=== PATIENT | male | born 1965 | race Caucasian/White ===

== ENCOUNTER → 2020-07-02 | Outpatient (CLI) | payer OTHER | LOC: KOH-I 15:15 | DX: M54.2 Cervicalgia (principal); M54.6 Pain in thoracic spine; M54.5 Low back pain; M47.812 Spondylosis without myelopathy or radiculopathy, cervical region; M47.814 Spondylosis without myelopathy or radiculopathy, thoracic region; M47.816 Spondylosis without myelopathy or radiculopathy, lumbar region | CPT/HCPCS: 72050; 72070; 72110 ==

== ENCOUNTER 2021-12-02 15:51 | Inpatient (IN) | payer OTHER ==
[~2021-12-02] VITALS: Ht 182.9 cm; Wt 128.0 kg
[2021-12-02 17:25] LABS: HEMOGLOBIN 15.8 gm/dl (14.0-17.5); RED BLOOD COUNT 5.13 M/UL (4.20-5.50); WHITE BLOOD COUNT 6.8 K/UL (4.5-11.0)
[2021-12-02 18:20] LABS: BUN/CREATININE RATIO 18 (0-10)
[2021-12-02 22:58] LABS: BUN/CREATININE RATIO 16 (0-10)
[2021-12-03 04:18] LABS: BUN/CREATININE RATIO 16 (0-10)
[2021-12-03 07:23] LABS: HEMOGLOBIN 13.9 gm/dl (14.0-17.5); RED BLOOD COUNT 4.77 M/UL (4.20-5.50)
[2021-12-03 08:16] LABS: BUN/CREATININE RATIO 18 (0-10)
[2021-12-03 09:15] LABS: WHITE BLOOD COUNT 3.7 K/UL (4.5-11.0)
[2021-12-03] MEDS ORDERED: OMEPRAZOLE40 MG PO (10:43)
[2021-12-03] MEDS ORDERED: VITAMIN D325 MC6 PO (10:44)
[2021-12-03] MEDS ORDERED: FUROSEMIDE40 MG PO (10:45)
[2021-12-03] MEDS ORDERED: CRESTOR10 MG PO (10:46)
[2021-12-03] MEDS ORDERED: POTASSIUM CHLO20 ME1 PO (10:47)
[2021-12-03 12:13] LABS: BUN/CREATININE RATIO 16 (0-10)
[2021-12-03 12:20] LABS: CANDIDA ALBICANS Not Detected (Negative); CANDIDA KRUSEI Not Detected (Negative); CANDIDA TROPICALIS Not Detected (Negative); ESCHERICHIA COLI Not Detected (Negative); HAEMOPHILUS INFLUENZAE Not Detected (Negative); KLEBSIELLA OXYTOCA Not Detected (Negative); KLEBSIELLA PNEUMONIAE Not Detected (Negative); KPC-CARBAPENEM-RESISTANCE GENE Not Detected (Negative); PROTEUS Not Detected (Negative); PSEUDOMONAS AERUGINOSA Not Detected (Negative); SERRATIA MARCESANS Not Detected (Negative); STAPHYLOCOCCUS AUREUS Not Detected (Negative); STREP AGALACTIAE (GROUP B) Not Detected (Negative); STREP PYOGENES (GROUP A) Not Detected (Negative); STREPTOCOCCUS Not Detected (Negative); vanA/B (VANCOMYCIN RESIST GENE Not Detected (Negative)
[2021-12-03 13:31] LABS: STAPHYLOCOCCUS DETECTED (Negative)
[2021-12-04 05:14] LABS: HEMOGLOBIN 12.4 gm/dl (14.0-17.5)
[2021-12-04 05:24] LABS: RED BLOOD COUNT 4.24 M/UL (4.20-5.50); WHITE BLOOD COUNT 6.7 K/UL (4.5-11.0)
[2021-12-04 05:28] LABS: BUN/CREATININE RATIO 24 (0-10)
[2021-12-04 12:16] LABS: BUN/CREATININE RATIO 22 (0-10)
[2021-12-04] MEDS ORDERED: BUPRENORPHIN-N1 EACH SL (22:47)
[2021-12-04] MEDS ORDERED: LEVOTHYROXINE25 MCG PO (22:48)
[2021-12-04] MEDS ORDERED: FOLIC ACID 1 MG1 MG PO (22:48)
[2021-12-04] MEDS ORDERED: GLUCOPHAGE 500500 MG PO (22:49)
[2021-12-05 06:39] LABS: HEMOGLOBIN 13.6 gm/dl (14.0-17.5); RED BLOOD COUNT 4.49 M/UL (4.20-5.50)
[2021-12-05 06:48] LABS: WHITE BLOOD COUNT 10.3 K/UL (4.5-11.0)
[2021-12-05 07:03] LABS: BUN/CREATININE RATIO 23 (0-10)
[2021-12-06 06:27] LABS: HEMOGLOBIN 15.4 gm/dl (14.0-17.5); WHITE BLOOD COUNT 9.7 K/UL (4.5-11.0)
[2021-12-06 06:30] LABS: RED BLOOD COUNT 5.05 M/UL (4.20-5.50)
[2021-12-06 06:45] LABS: BUN/CREATININE RATIO 26 (0-10)
[2021-12-06 19:43] LABS: BUN/CREATININE RATIO 23 (0-10)
[2021-12-07 06:21] LABS: HEMOGLOBIN 14.8 gm/dl (14.0-17.5); RED BLOOD COUNT 4.9 M/UL (4.20-5.50); WHITE BLOOD COUNT 10.8 K/UL (4.5-11.0)
[2021-12-07 06:42] LABS: BUN/CREATININE RATIO 20 (0-10)
[2021-12-08 06:19] LABS: WHITE BLOOD COUNT 13.4 K/UL (4.5-11.0)
[2021-12-08 06:20] LABS: HEMOGLOBIN 16.9 gm/dl (14.0-17.5); RED BLOOD COUNT 5.53 M/UL (4.20-5.50)
[2021-12-08 06:58] LABS: BUN/CREATININE RATIO 16 (0-10)
[2021-12-09 08:04] LABS: HEMOGLOBIN 14.3 gm/dl (14.0-17.5); RED BLOOD COUNT 4.68 M/UL (4.20-5.50); WHITE BLOOD COUNT 8.6 K/UL (4.5-11.0)
[2021-12-09 08:19] LABS: BUN/CREATININE RATIO 14 (0-10)
[2021-12-09] MEDS ORDERED: NOVOLOG MI100 UNIT/1 SC (16:46)
[2021-12-09] MEDS ORDERED: ASPIRIN EC81 MG PO (16:47)
[2021-12-09] MEDS ORDERED: ACCU-CHEK FAST1 EACH MC (16:53)
[2021-12-09] MEDS ORDERED: GLUCOSE TEST S1 EACH MC (16:53)
[2021-12-09] MEDS ORDERED: ACCU-CHEK GUID1 EAC3 MC (16:53)
== END 2021-12-09 18:28 | disposition home or self-care (01) | DRG 177 ==
LOC: ER1 15:51 → CDU 20:09 → MED SURG 4 20:09 → CCU 20:09 → MED SURG 4 12-04 20:42
PROVIDERS: Internal Medicine; Internal Medicine Critical Care Medicine; Nurse Practitioner; ADMIT Internal Medicine
PROC: 8E0ZXY6 Isolation (ICD-10-PCS; principal; 2021-12-02)
PROC: XW033E5 Introduction of Remdesivir Anti-infective into Peripheral Vein, Percutaneous Approach, New Technology Group 5 (ICD-10-PCS; 2021-12-02)
PROC: 3E0333Z Introduction of Anti-inflammatory into Peripheral Vein, Percutaneous Approach (ICD-10-PCS; 2021-12-02)
PROC: B24BZZZ Ultrasonography of Heart with Aorta (ICD-10-PCS; 2021-12-07)
DX: U07.1 COVID-19 (principal); E11.10 Type 2 diabetes mellitus with ketoacidosis without coma; J12.82 Pneumonia due to coronavirus disease 2019; J15.211 Pneumonia due to Methicillin susceptible Staphylococcus aureus; J96.01 Acute respiratory failure with hypoxia; G93.41 Metabolic encephalopathy; F11.20 Opioid dependence, uncomplicated; E03.9 Hypothyroidism, unspecified; K21.9 Gastro-esophageal reflux disease without esophagitis; E78.5 Hyperlipidemia, unspecified; G89.4 Chronic pain syndrome; I45.81 Long QT syndrome; E87.6 Hypokalemia; I11.0 Hypertensive heart disease with heart failure; I50.9 Heart failure, unspecified; R00.1 Bradycardia, unspecified; T39.95XA Adverse effect of unspecified nonopioid analgesic, antipyretic and antirheumatic, initial encounter; E66.01 Morbid (severe) obesity due to excess calories; I34.0 Nonrheumatic mitral (valve) insufficiency; Z79.4 Long term (current) use of insulin; Z68.38 Body mass index [BMI] 38.0-38.9, adult; Z79.01 Long term (current) use of anticoagulants; Z79.82 Long term (current) use of aspirin; Z90.49 Acquired absence of other specified parts of digestive tract; Z82.49 Family history of ischemic heart disease and other diseases of the circulatory system; Z87.891 Personal history of nicotine dependence; Z28.310 Unvaccinated for COVID-19
CPT/HCPCS: ECHO; 0240U; 36415; 36600; 70450; 71045; 80048; 80053; 80076; 80202; 80307; 81001; 82009; 82140; 82550; 82553; 82803; 82962; 83036; 83605; 83735; 83880; 84100; 84132; 84439; 84443; 84484; 85025; 85379; 85610; 85652; 85730; 86140; 87015; 87040; 87070; 87077; 87081; 87086; 87116; 87150; 87186; 87205; 93005; 93306; 94640; 94664; 94760; 96361; 96374; 96375; 96376; 99285; C1894; G0378; J0248; J0696; J1100; J1335; J1650; J1940; J2550; J3370; J3475; J7030; J7070; Q9967

== ENCOUNTER 2021-12-13 13:57 | Emergency (ER) | payer OTHER ==
[~2021-12-13 13:57] MED LIST: ACCU-CHEK FAST1 EACH MC; ACCU-CHEK GUID1 EAC3 MC; ASPIRIN EC81 MG PO; BUPRENORPHIN-N1 EACH SL; CRESTOR10 MG PO; FOLIC ACID 1 MG1 MG PO; FUROSEMIDE40 MG PO; GLUCOPHAGE 500500 MG PO; GLUCOSE TEST S1 EACH MC; LEVOTHYROXINE25 MCG PO; NOVOLOG MI100 UNIT/1 SC; OMEPRAZOLE40 MG PO; POTASSIUM CHLO20 ME1 PO; VITAMIN D325 MC6 PO
[2021-12-13 14:25] LABS: HEMOGLOBIN 14.8 gm/dl (14.0-17.5); RED BLOOD COUNT 4.78 M/UL (4.20-5.50); WHITE BLOOD COUNT 5.9 K/UL (4.5-11.0)
[2021-12-13 14:51] LABS: BUN/CREATININE RATIO 16 (0-10)
[2021-12-13] MEDS ORDERED: ZOFRAN 4 MG TAB4 MG PO (18:12)
== END 2021-12-13 18:25 | disposition home or self-care (01) ==
LOC: ER1 13:57
PROVIDERS: Emergency Medicine
DX: K43.6 Other and unspecified ventral hernia with obstruction, without gangrene (principal); J18.9 Pneumonia, unspecified organism; E66.9 Obesity, unspecified; E11.9 Type 2 diabetes mellitus without complications; R60.0 Localized edema; Z79.4 Long term (current) use of insulin; Z79.899 Other long term (current) drug therapy; Z79.84 Long term (current) use of oral hypoglycemic drugs
CPT/HCPCS: 80053; 83605; 83690; 85025; 96374; 96375; 96376; 99284; J1170; J2060; J2405